=== PATIENT | female | born 1995 ===

== ENCOUNTER 2024-11-02 08:42 | Outpatient (AMB) | payer OTHER, SELFPAY ==
--- NOTE | 2024-11-02 08:45 | A.OFFPC_ITS ---
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 Intake Note: patient here for new patient visit [employer] Supervisor Required: No Is last menstrual period known: Yes Last menstrual period: 10/18/24 Post menopausal: No Patient : No Allergies amoxicillin Allergy (Mild, Verified 11/02/24 09:15) Unknown Medication List - Last Reconciled 11/02/24 by Leonardo Camara CNP No Known Home Meds Tobacco use date assessed: 11/02/24 Dental Screening Dental Screen Date: 11/02/24 Did you have a dental visit in the last 12 months?: No Did you have a dental problem in the last 6 months where you did not have access to dental care?: No Was dental information given to patient?: Yes HPI HPI Comments History of Present Illness Details 29-year-old female presents to [facility] care. Prior PCP? - [facility], [place], [place] Last office visit/CPE/labs - About 4 years ago Acute issue(s) - Reports chronic fatigue for the past 1 year - Reports joint pain of the ankles and f eet, worse in the morning, ongoing daily for the past 6 months; denies injury or trauma - Reports cold sensation and white color ation 3rd and 4th digits for the left hand in cold temperatures - She notes history of red, raised, scal y rash to her face and both arms; present in the arms for 8 months and face for 1 months. Facial rash disappeared in March. Rash on arms disappeared early this month. Past Medical History - None Surgical History - None Family History - Mom: Substance abuse - MGM: Lung cancer Social History - Smokes 5 cigarettes daily, smoked 10 c igarettes daily for the past 10 years; trying to quit and has been cutting back. Does not vape. Drinks 2-3 beers/wine/cocktail weekly/socially. Denies recreational drug use - Has been making healthy dietary choice s. Exercises routinely (including push-u ps, sit-ups. Generally sleep well Health maintenance - Never had an eye exam - Last dental visit was about 10 years a go; encouraged to schedule an appointment with his dentist for routine dental care. - Last tetanus vaccine was more than 10 years ago; received Tdap vaccine today - Has not been vaccinated for the flu season; declines vaccination - Last pap smear test was 10 years ago. 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 1. Little interest or pleasure in doing things: not at all 2. Feeling down, depressed, or hopeless: not at all 3. Trouble falling or staying asleep, or sleeping too much: more than half the days 4. Feeling tired or having little energy: nearly every day 5. Poor appetite or overeating: not at all 6. Feeling bad about yourself - or that you are a failure or have let yourself or your family down: not at all 7. Trouble concentrating on things, such as reading the newspaper or watching television: not at all 8. Moving or speaking so slowly that other people could have noticed. Or the opposite - being so fidgety or restless that you have been moving around a lot more than usual: not at all 9. Thoughts that you would be better off or of hurting yourself in some way: not at all Total score: 5 Depression Screening Interpretation: Positive Depression Screening Done: Yes 06614 - PHQ-9 Billing: Yes Source: Developed by Drs. Vaughn Sheets, Eliza Melara, Shaun Short and colleagues, with an educational shelia from [employer]. Thrive Questionnaire Date Thrive assessed: 11/02/24 I am a: Patient What is your living situation today?: I have a steady place to live Within the past 12 months, did the food you bought not last and you didn't have the money to get more?: Never true Within the past 12 months, did you worry whether your food would run out before you got money to buy more?: Never true Do you have trouble paying for medicines?: I choose not to answer this question Do you have trouble getting transportation to medical appointments?: No Do you have trouble paying your heating and electricity bill?: No Do you have trouble taking care of your child, family member or friend?: No Do you have trouble with day-to-day activities such as bathing, preparing meals, shopping, managing finances, etc.?: I choose not to answer this question Are you currently unemployed and looking for a job?: No Are you interested in more education?: No Please select the resources that you would like help with: None Currently or been in a relationship where the following occur: I choose not to answer THRIVE Score: 0 AUDIT C Alcohol Use Questionnaire (AUDIT-C) 1. How often do you have a drink containing alcohol?: 2-3 times a week 2. How many drinks containing alcohol do you have on a typical day when you are drinking?: 1 or 2 3. How often do you have six or more drinks on one occasion?: Less than monthly Total Score: 4 Score Reviewed/Action Taken: Yes LINDA-7 AMB Questionnaire LINDA-7 Date LINDA - 7 assessed: 11/02/24 Feeling nervous, anxious, or on edge: 0 = Not at all Not being able to stop or control worryin = Several days Worrying too much about different things: 1 = Several days Trouble relaxin = Not at all Being so restless that it is hard to sit still: 0 = Not at all Becoming easily annoyed or irritable: 1 = Several days Feeling afraid as if something awful might happen: 0 = Not at all Total LINDA-7 score (0-4 normal; 5-9 mild; 10-14 moderate; 15-21 severe): 3 Source: Developed by Drs. Vaughn Sheets, Eliza Melara, Shaun Short and colleagues, with an educational shelia from [employer] LINDA-7 Assessment Billing LINDA-7 Assessment Tool: LINDA-7 Assessment 61695 Review of Systems Const Details: Denies chills, Reports fatigue, Denies fever(s), Denies headache(s) and Denies weakness HEENT Denies change in vision, Denies dizziness, Denies headache(s), Denies hearing loss, Denies nasal congestion, Denies sinus pain, Denies sinus pressure and Denies sore throat Card Denies chest pain, Denies lightheadedness, Denies dyspnea and Denies other (palpitations) Resp Denies cough, Denies dyspnea and Denies wheezing GI Denies abdominal pain, Denies melena, Denies hematochezia, Denies change in bowel habits, Denies dyspepsia and Denies nausea Denies hematuria and Denies dysuria Musc Reports joint pain of the ankles and feet, Reports cold sensation and white coloration 3rd and 4th digits for the left hand in cold temperatures, Denies abnormal gait, Denies numbness and Denies tingling Skin/Breast Denies rash, Denies unusual bruising and Denies wounds Neuro Denies abnormal gait, Denies dizziness, Denies headache(s), Denies memory loss, Denies numbness, Denies Sensory deficit (Neuro), Denies tingling and Denies weakness Psych Denies anxiety, Denies depression and Denies memory loss Endo Denies cold intolerance, Reports fatigue, Denies heat intolerance, Denies polydipsia and Denies polyuria Pavan/Lymph Denies easy bleeding and Denies easy bruising Aller/Immun Denies wheezing Physical exam (Primary Care) Vital Signs: Last Vital Signs Temp 99.4 F 11/02/24 08:54 Pulse 88 11/02/24 08:54 Resp 16 11/02/24 08:54 BP 113/66 11/02/24 08:54 Pulse Ox 99 11/02/24 08:54 Oxygen Delivery Method Room Air 11/02/24 08:54 BMI result Body Mass Index 22.5 Tobacco/Smoking Status: Tobacco use Status Tobacco use date assessed 11/02/24 11/02/24 08:53 Patient Tobacco Use Status Current everyday Tobacco 11/02/24 08:53 e-Cigarette/Vaping Use Never Used 11/02/24 08:53 PHQ-9: PHQ-9 Score PHQ-9: Total score 5 11/02/24 09:25 Depression Screening Interpretation: Positive Thrive Assessment: Date of Thrive Assessment Date Thrive assessed 11/02/24 11/02/24 08:48 Currently or been in a relationship where the following occur: I choose not to answer Const Other: General: no acute distress, well developed, alert and awake Nutritional Appearance: well nourished Orientation/consciousness: patient oriented x3 [facility] Head: Yes normocephalic and Yes atraumatic Ears: hearing grossly normal bilaterally and TM's normal bilaterally General nose exam: Normal external nose present and Normal nares present Mouth: Normal oral and palatal mucosa present and moist mucous membranes Teeth and gingiva: dentition normal Throat: Yes oropharynx normal Eyes Pupils: Equal, round and reactive pupils present and Pupil accommodation reflex normal EOM: EOMs intact bilaterally Neck Neck: Yes normal visual inspection, Yes no lymphadenopathy and Yes trachea midline Thyroid: Thyroid normal Carotids: no bruits Lymphatic: no lymphadenopathy noted Chest Chest palpation & inspection: normal inspection of the chest Resp Effort & Inspection: normal respiratory effort Auscultation: clear to auscultation bilaterally Cardio Rate: regular rate Rhythm: regular rhythm Heart sounds: S1 normal heart sound present, S2 normal heart sound present, no gallops, no murmurs and no rubs Bruits: no abdominal aortic bruits and no carotid bruits GI Palpation (GI): No Abdominal aortic bruit present, Soft to palpation, nontender, No hepatosplenomegaly present and No Rebound tenderness present Auscultation: normal bowel sounds General: Yes no CVA tenderness Back/Spine/Pelvis Back: no CVA tenderness Cervical Spine: cervical ROM normal and No Cervical spine tenderness Thoracic/Lumbar Spine: thoraco-lumbar ROM normal, No pain with thoraco-lumbar ROM, No thoracic spinal tenderness and No lumbar spinal tenderness Skin General: warm and dry. Normal skin color. Normal skin turgor Lesions: no lesions Rashes: no rashes Trauma: no lacerations or abrasions Wounds: no wounds Nails: normal Neuro General: patient oriented x3, gait normal and CN's II-XI intact bilaterally Cranial nerves: Yes Equal, round and reactive pupils present Cognition (Neuro): normal cognition Gait exam (Neuro): Normal gait present Motor exam (neuro): 5/5 motor strength present throughout Sensory Exam: No Sensory deficit (Neuro) Deep tendon reflexes (DTR's): Right patellar reflex intensity grade: 2+ and Left patellar reflex intensity grade: 2+ Extrem General: Yes normal to inspection, No edema and No calf tenderness Psych Appearance: grossly normal Affect: normal affect Attitude: cooperative Thought process: Normal thought process present Immunizations Boostrix Tdap 2.5 Lf unit-8 mcg-5 Lf/0.5 mL intramuscular syringe Performing Provider: Leonardo Camara CNP [place] [facility] [place] [facility] Administered by: Mitali Lee RN on 11/02/24 10:02 Dose Route Admin Location Dispensed Lot Number Expiration Date [employer] 0.5 mL IM Right Deltoid 0.5 mL [id number] 11/29/26 [id number] [employer] VIS Given Date VIS Provided VIS Publication Date 11/02/24 Single Vaccine 21 Eligibility Eligibility Date Funding Source Not [facility] Eligible 11/02/24 Private Coding Level of Care Code New Pt Level 4 (59765) New Pt Prev Care 18-39yr(04403 Diagnoses Normal physical examination, routine Z00.00 Bilateral foot pain M79.671; M79.672 Fatigue R53.83 Raynaud phenomenon I73.00 Smoking trying to quit Z72.0 Eye exam, routine Z01.00 Vaccine for tetanus toxoid Z23 Pap smear for cervical cancer screening Z12.4 Laboratory tests ordered as part of a complete physical exam (CPE) Z00.00 Additional Codes LINDA-7 Assessment Billing - ILNDA-7 Assessment Tool: LINDA-7 Assessment 13886 ([id number]) PHQ-9 - 55695 - PHQ-9 Billing: Yes ([id number]) Assessment & Plan Assessment & Plan (1) Normal physical examination, routine: Code(s): Z00.00 - Encounter for general adult medical examination without abnormal findin gs Category: Medical Plan: No significant functional limitation noted. Healthy diet and routine exercise encouraged. Advised to get blood work done and follow-up for telehealth visit in 2 weeks for labs review or sooner with symptoms or concerns. Verbalized understanding and agreed with the plan. (2) Bilateral foot pain: Code(s): M79.671 - Pain in right foot; M79.672 - Pain in left foot Category: Medical Plan: Chronic, persistent pain to bilateral ankles/feet, worse in the morning. No overt injury or trauma. May take Tylenol or ibuprofen as needed for pain or discomfort. Warm/cool compresses encouraged. Will check CRP level and make changes as needed. Follow-up with worsening or new symptoms verbalized understanding and agreed with the plan. (3) Fatigue: Code(s): R53.83 - Other fatigue Category: Medical Plan: Chronic fatigue x1 year. Anemia, hypothyroidism, vitamin-D deficiency is likely Will routine labs. Will like yrte vitamin-D levels. Will make changes as needed. Verbalized understanding and agreed with the plan. (4) Raynaud phenomenon: Code(s): I73.00 - Raynaud's syndrome without gangrene Category: Medical Plan: Cold sensation and white coloration 3rd and 4th digits for the left hand in cold temperatures. Warm compresses encouraged. Advised to wear warm clothing and avoid triggers such as cold temperatures. Will review lab results and make changes as needed. Follow-up with worsening or new symptoms. Verbalized understanding and agreed with the plan. (5) Smoking trying to quit: Code(s): Z72.0 - Tobacco use Category: Social Hx Plan: She smokes 5 cigarettes daily. She has a history of smoking 10 cigarettes daily for the past 10 years. She is trying to quit and has been cutting back. Declines medication treatment for smoking cessation. Instructed on the health risks and complications of smoking; smoking cessation encouraged. Follow-up as needed. Verbalized understanding and agreed with the plan. (6) Eye exam, routine: Code(s): Z01.00 - Encounter for examination of eyes and vision without abnormal findings Category: Medical Plan: She has never had an eye exam. Referred to Ophthalmology for routine eye care. (7) Vaccine for tetanus toxoid: Code(s): Z23 - Encounter for immunization Category: Medical Plan: Administered today. (8) Pap smear for cervical cancer screening: Code(s): Z12.4 - Encounter for screening for malignant neoplasm of cervix Category: Medical Plan: Last pap smear test was 10 years ago. [place] [facility] [place] (9) Laboratory tests ordered as part of a complete physical exam (CPE): Code(s): Z00.00 - Encounter for general adult medical examination without abnormal findings Category: Medical Plan: Fasting labs ordered as part of a complete physical exam. Advised to fast for at least 10 hours before getting labs drawn. May drink water Verbalized understanding and agreed with treatment plan. Plan History rash to the face and arms. No rash at this time. Monitor for rash and return as needed. Verbalized understanding and agreed with the plan. Orders: Orders Vitamin D 25-OH Total Today Z00.00 - Encounter for general adult medical examination without abnormal findings Lipid Panel Today Z00.00 - Encounter for general adult medical examination without abnormal findings CRP High Sensitivity Today M79.671 - Pain in right foot, M79.672 - Pain in left foot TSH reflex Free T4 Today Z00.00 - Encounter for general adult medical examinat ion without abnormal findings Complete Blood Count Auto Diff Today Z00.00 - Encounter for general adult medical examination without abnormal findings Comprehensive [place]. Panel Fast Today Z00.00 - Encounter for general adult medical examination without abnormal findings UA CC w/rflx Micro + Cult Today Z00.00 - Encounter for general adult medical examination without abnormal findings TDaP Immunization Today Z23 - Encounter for immunization Referrals Ophthalmology Referral Z01.00 - Encounter for examination of eyes and vision without abnormal findings LEAD AUDITOR Referral Z12.4 - Encounter for screening for malignant neoplasm of cervix Medications: New Boostrix Tdap (diphth,pertus(acell),tetanus) 0.5 mL IM ONCE 0.5 mL 0RF NS Z23 - Encounter for immunization
[2024-11-02 08:54] VITALS: BP 113/66; PULSE 88; RESP 16; TEMP 37.4; O2SAT 99; BMI 22.5
== END 2024-11-02 09:41 | disposition home or self-care (01) ==
PROVIDERS: PCP Nurse Practitioner Family; Visit Provider Nurse Practitioner Family
DX: Z00.00 Encounter for general adult medical examination without abnormal findings (principal); M79.671 Pain in right foot; M79.672 Pain in left foot; R53.83 Other fatigue; I73.00 Raynaud's syndrome without gangrene; Z72.0 Tobacco use; Z23 Encounter for immunization

== ENCOUNTER → 2024-11-02 08:42 | Outpatient (BNVA) | payer OTHER, SELFPAY | PROVIDERS: Visit Provider Nurse Practitioner Family | DX: Z00.01 Encounter for general adult medical examination with abnormal findings (principal); Z23 Encounter for immunization; M79.671 Pain in right foot; M79.672 Pain in left foot; R53.83 Other fatigue; I73.00 Raynaud's syndrome without gangrene; Z72.0 Tobacco use | CPT/HCPCS: 90471; 90715; 96127; 99202; 99385 ==

== ENCOUNTER 2024-11-02 09:48 | Outpatient (REF) | payer OTHER, SELFPAY ==
[2024-11-02 11:06] LABS: MANUAL DIFF FLAG NO
[2024-11-02 11:23] LABS: Basophils Absolute Auto 0.1 X10*3/uL (0.0-0.2); Basophils Percent Auto 0.8 % (0-2); Eosinophils Absolute Auto 0.1 X10*3/uL (0.0-0.4); Eosinophils Percent Auto 2.1 % (0-4); Hematocrit 40.3 % (37.0-47.0); Hemoglobin 13.5 g/dl (12.0-16.0); Imm Gran Abs Auto 0.02 X10*3/uL (0.00-0.03); Imm Gran Pct Auto 0.3 % (0.0-0.4); Lymphocytes Absolute Auto 2.3 X10*3/uL (1.2-4.9); Lymphocytes Percent Auto 34.1 % (20-40); Mean Corpuscular HGB Conc 33.5 g/dl (31.0-35.0); Mean Corpuscular Hemoglobin 30.8 pg (27.0-33.0); Mean Corpuscular Volume 91.8 fL (80.0-98.0); Mean Platelet Volume 10.3 fL (9.4-12.3); Monocytes Absolute Auto 0.5 X10*3/uL (0.1-1.2); Monocytes Percent Auto 7.8 % (2-11); Neutrophils Absolute Auto 3.7 x10*3/uL (2.0-8.3); Neutrophils Percent Auto 54.9 % (45-73); Platelet Count 252 X10*3/uL (160-400); Red Blood Count 4.39 X10*6/uL (4.20-5.50); Red Cell Distribution Width 12.1 % (11.0-16.0); White Blood Count 6.7 X10*3/uL (4.8-10.8)
[2024-11-02 11:55] LABS: Appearance Urine Clear; Color Urine Yellow; Glucose Urine UA Negative (Negative); Leukocyte Esterase Urine Negative (Negative); Nitrite Urine Negative (Negative); PH 7.5 (5.0-9.0); Urine Blood Negative (Negative); Urine Ketones Negative (Negative); Urine Protein Negative (Neg-Trace)
[2024-11-02 11:59] LABS: Alanine Aminotransferase 18 U/L (0-31); Albumin Level 4.7 g/dL (3.5-5.0); Anion Gap 12 (12-20); Aspartate Amino Transferase 19 U/L (5-31); Bilirubin Total 0.2 mg/dL (0.0-1.0); Blood Urea Nitrogen 11 mg/dL (9-16); Carbon Dioxide 26 mmol/L (22-29); Chloride 104 mmol/L (96-108); Cholesterol 212 mg/dL (<200); Estimated Glomerular Filt Rate > 60; Glucose Fasting 98 mg/dL (60-99); HDL Cholesterol 89 mg/dL (>40); LDL Cholesterol Calculated 113 mg/dL (<100); Potassium 4.1 mmol/L (3.3-5.1); Sodium 138 mmol/L (135-145); Total Protein 7.1 g/dL (6.5-8.0); Triglycerides 52 mg/dL (<150)
[2024-11-02 12:31] LABS: TSH reflex Free T4 1.93 uIU/mL (0.32-4.0); Vitamin D 25-OH Total 17.2 ng/mL (>30)
[2024-11-02 12:44] LABS: Alkaline Phosphatase 45 U/L (39-117)
[2024-11-03 09:59] LABS: CRP High Sensitivity <0.2 mg/L
== END 2024-11-02 09:49 | disposition home or self-care (01) ==
LOC: HO.WFDLDS 09:48
PROVIDERS: Visit Provider Nurse Practitioner Family
DX: Z00.00 Encounter for general adult medical examination without abnormal findings (principal); M79.671 Pain in right foot; M79.672 Pain in left foot
CPT/HCPCS: 36415; 80053; 80061; 81003; 82306; 84443; 85025; 86141

== ENCOUNTER 2024-11-16 14:55 | Outpatient (AMB) | payer OTHER, SELFPAY ==
--- NOTE | 2024-11-16 14:52 | A.OFFPC_ITS ---
Int[facility] Int[facility] Note[facility] Anesthesiologist/Physician Required: No Is last menstrual period known: Yes Last menstrual period: 11/16/24 Post menopausal: No Patient : No Allergies amoxicillin Allergy (Mild, Verified 11/16/24 14:52) Unknown Tobacco use date assessed: 11/16/24 Dental Screening Dental Screen Date: 11/16/24 Did you have a dental visit in the last 12 months?: No Did you have a dental problem in the last 6 months where you did not have access to dental care?: No Was dental information given to patient?: No HPI HPI Comments History of Present Illness Details 29-year-old female presents for [facility] for review of recent lab results. She admits to taking vitamin D3 as prescribed without adverse reactions. Her fatigue improved for few days after she started taking vitamin D3 worsened. No acute symptoms. 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 Current occupational exposures/hazards: No Cognitive needs: No Hearing needs: No Vision needs: No Female Reproductive History Menstrual Date of last menstrual period: 11/16/24 Questionnaire Thrive Questionnaire Date Thrive assessed: 11/02/24 I am a: Patient What is your living situation today?: I have a steady place to live Within the past 12 months, did the food you bought not last and you didn't have the money to get more?: Never true Within the past 12 months, did you worry whether your food would run out before you got money to buy more?: Never true Do you have trouble paying for medicines?: I choose not to answer this question Do you have trouble getting transportation to medical appointments?: No Do you have trouble paying your heating and electricity bill?: No Do you have trouble taking care of your child, family member or friend?: No Do you have trouble with day-to-day activities such as bathing, preparing meals, shopping, managing finances, etc.?: I choose not to answer this question Are you currently unemployed and looking for a job?: No Are you interested in more education?: No Please select the resources that you would like help with: None Currently or been in a relationship where the following occur: I choose not to answer THRIVE Score: 0 AUDIT C Alcohol Use Questionnaire (AUDIT-C) 2. How many drinks containing alcohol do you have on a typical day when you are drinking?: 1 or 2 3. How often do you have six or more drinks on one occasion?: Less than monthly Total Score: 1 LINDA-7 AMB Questionnaire LINDA-7 Date LINDA - 7 assessed: 11/02/24 Source: Developed by Drs. Vaughn Sheets, Eliza Melara, Shaun hSort and colleagues, with an educational shelia from [employer]. Review of Systems Const Details: Denies chills, Reports fatigue, Denies fever(s), Denies headache(s) and Denies weakness Cardiac Denies chest pain, Denies claudication, Denies leg edema, Denies lightheadedness, Denies palpitations, Denies dyspnea, Denies dyspnea on exertion, Denies orthopnea and Denies other (Loss of consciousness) Resp Denies cough, Denies excessive phlegm production, Denies dyspnea, Denies dyspnea on exertion, Denies snoring and Denies wheezing Physical exam (Primary Care) Tobacco/Smoking Status: Tobacco use Status Tobacco use date assessed 11/16/24 11/16/24 14:55 Patient Tobacco Use Status Current everyday Tobacco 11/16/24 14:55 e-Cigarette/Vaping Use Never Used 11/16/24 14:55 Thrive Assessment: Date of Thrive Assessment Date Thrive assessed 11/02/24 11/16/24 14:55 Currently or been in a relationship where the following occur: I choose not to answer Const Other: Telehealth visit. No physical exam. Telehealth Telehealth Telehealth Platform: Telephone Location of provider rendering services: practice address Location of patient: address on file Patient Identification confirmed using: Name, : Yes Telehealth method: voice only Patient verbally consented to treatment: Yes Patient verbally consented to billing insurance company: Yes Patient informed of any privacy concerns related to visit: Yes Coding Level of Care Code Tele Est Pt Level 3 (79292) Diagnoses Vitamin D deficiency E55.9 Fatigue R53.83 Hypercholesterolemia E78.00 Time Spent (min) 15 Assessment & Plan Assessment & Plan (1) Vitamin D deficiency: Code(s): E55.9 - Vitamin D deficiency, unspecified Category: Medical Plan: Recent vitamin-D level is significantly low, 17.2. Likely the cause of fatigue. She is on vitamin-D 3 1250 mcg every week; encouraged to continue to take as prescribed. Routine exercise encouraged. Perform repeat vitamin-D blood work 2-3 days before next visit. Follow-up in 6 weeks or sooner with worsening or new symptoms. Verbalized understanding and agreed with treatment plan. (2) Fatigue: Code(s): R53.83 - Other fatigue Category: Medical Plan: Plan as above. (3) Hypercholesterolemia: Code(s): E78.00 - Pure hypercholesterolemia, unspecified Category: Medical Plan: Recent total cholesterol and LDL levels are slightly elevated, 212 and 113 respectively. Advised to limit foods high in saturated fat and avoid foods high in trans fat. Routine exercise encouraged. Fast for 10-12 hours, may drink water, and get repeat lipid panel a few days before next visit. Follow-up in 6 weeks. Verbalized understanding and agreed with treatment plan. Orders: Orders Vitamin D 25-OH Total 6 Weeks E55.9 - Vitamin D deficiency, unspecified Lipid Panel 6 Weeks E78.00 - Pure hypercholesterolemia, unspecified
== END 2024-11-16 16:40 | disposition home or self-care (01) ==
LOC: HO.HMCFM 14:55
PROVIDERS: PCP Nurse Practitioner Family; Visit Provider Nurse Practitioner Family
DX: E55.9 Vitamin D deficiency, unspecified (principal); R53.83 Other fatigue; E78.00 Pure hypercholesterolemia, unspecified

== ENCOUNTER 2025-01-16 12:43 | Outpatient (REF) | payer OTHER, SELFPAY ==
[2025-01-16 14:43] LABS: Cholesterol 190 mg/dL (<200); HDL Cholesterol 86 mg/dL (>40); LDL Cholesterol Calculated 96 mg/dL (<100); Triglycerides 43 mg/dL (<150)
[2025-01-16 15:03] LABS: Vitamin D 25-OH Total 90.9 ng/mL (>30)
== END 2025-01-16 12:44 | disposition home or self-care (01) ==
LOC: HO.WFDLDS 12:43
PROVIDERS: Visit Provider Nurse Practitioner Family
DX: E78.00 Pure hypercholesterolemia, unspecified (principal); E55.9 Vitamin D deficiency, unspecified
CPT/HCPCS: 36415; 80061; 82306

== ENCOUNTER 2025-01-22 14:26 | Outpatient (AMB) | payer OTHER, SELFPAY ==
--- NOTE | 2025-01-22 14:22 | MHC.PC.OV ---
Intake Visit Reasons: 6 wks vitamin-D deficiency, hypercholesterolemia Intake Note: patient here for 6 wks follow up on Vitamin-D deficiency and hypercholesterolemia [place] [employer] Required: No Is last menstrual period known: Yes Last menstrual period: 01/09/25 Post menopausal: No Patient : No Allergies amoxicillin Allergy (Mild, Verified 01/22/25 14:23) Unknown Tobacco use date assessed: 01/22/25 Dental Screening Dental Screen Date: 01/22/25 Did you have a dental visit in the last 12 months?: No Did you have a dental problem in the last 6 months where you did not have access to dental care?: No Was dental information given to patient?: No HPI HPI Comments History of Present Illness Details 29-year-old female presents for a telehealth visit for review of recent lab results. She notes that she to vitamin D3 1250 mcg weekly as prescribed. She as chronic, persistent fatigue which is now intermittent. No acute symptoms. 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 Vaughn Sheets, Eliza Melara, Shaun Short and colleagues, with an educational shelia from [employer]. Review of Systems Const Details: Denies chills, Denies fatigue, Denies fever(s), Denies headache(s) and Denies weakness Cardiac Denies chest pain, Denies claudication, Denies leg edema, Denies lightheadedness, Denies palpitations, Denies dyspnea, Denies dyspnea on exertion, Denies orthopnea and Denies other (Loss of consciousness) Resp Denies cough, Denies excessive phlegm production, Denies dyspnea, Denies dyspnea on exertion, Denies snoring and Denies wheezing Physical exam (Primary Care) Tobacco/Smoking Status: Tobacco use Status Tobacco use date assessed 01/22/25 01/22/25 14:25 Patient Tobacco Use Status Current everyday Tobacco 01/22/25 14:25 e-Cigarette/Vaping Use Never Used 01/22/25 14:25 Thrive Assessment: Date of Thrive Assessment Date Thrive assessed 11/02/24 01/22/25 14:25 Const Other: Patient is alert and oriented x3. Telehealth Telehealth Telehealth Platform: Telephone Location of provider rendering services: practice address Location of patient: address on file Patient Identification confirmed using: Name, : Yes Telehealth method: voice only Patient verbally consented to treatment: Yes Patient verbally consented to billing insurance company: Yes Patient informed of any privacy concerns related to visit: Yes Coding Level of Care Code Tele Est Pt Level 3 (86256) Diagnoses Hypercholesterolemia E78.00 Vitamin D deficiency E55.9 Fatigue R53.83 Time Spent (min) 10 Assessment & Plan Assessment & Plan (1) Hypercholesterolemia: Code(s): E78.00 - Pure hypercholesterolemia, unspecified Category: Medical Plan: Recent total cholesterol and LDL are normal, 190 from 212 and 96 from 113 respectively. Advised to limit foods high in saturated fat and avoid foods high in trans fat. Routine exercise encouraged. Will monitor lipid panel levels periodically or with associated symptoms or concerns. Follow-up for an extended physical exam on/after 11/02/2026. Return sooner with symptoms or concerns. Verbalized understanding and agreed with treatment plan. Verbalized understanding and agreed with treatment plan. (2) Vitamin D deficiency: Code(s): E55.9 - Vitamin D deficiency, unspecified Category: Medical Plan: Recent vitamin-D level is normal, 90.9 from 17.2. She completed course of vitamin D3 1250 mcg. Vitamin D3 25 mcg daily ordered; advised to take as prescribed. Verbalized understanding and agreed with treatment plan. (3) Fatigue: Code(s): R53.83 - Other fatigue Category: Medical Plan: She as chronic, persistent fatigue which is now intermittent. Vitamin-D deficiency may be the cause. However, her vitamin-D level is normal but she has not been on vitamin-D supplement for a couple of weeks. Encouraged to take vitamin D3 25 mcg daily. Follow-up with worsening or new symptoms. Verbalized understanding and agreed with treatment plan. Medications: New cholecalciferol (vitamin D3) 25 mcg PO DAILY 90 days 90 tabs 1RF Discontinued cholecalciferol (vitamin D3) Discontinued Reason: Doctor's Order 1,250 mcg PO QWEEK 8 weeks 8 tabs 0RF
== END 2025-01-22 15:24 | disposition home or self-care (01) ==
LOC: HO.HMCFM 14:26
PROVIDERS: PCP Nurse Practitioner Family; Visit Provider Nurse Practitioner Family
DX: E78.00 Pure hypercholesterolemia, unspecified (principal); E55.9 Vitamin D deficiency, unspecified; R53.83 Other fatigue

== ENCOUNTER → 2025-01-22 14:26 | Outpatient (BNVA) | payer OTHER, SELFPAY | PROVIDERS: PCP Nurse Practitioner Family; Visit Provider Nurse Practitioner Family ==